=== PATIENT | male | born 1950 | race Caucasian/White ===

== ENCOUNTER 2019-02-17 06:41 | Inpatient (IN) | payer MEDICARE, OTHER ==
[~2019-02-17] VITALS: Ht 172.7 cm; Wt 75.7 kg
[~2019-02-17 06:41] MED LIST: DOXA4TAB2
[2019-02-17] MEDS ORDERED: SODIUM CHLORIDE 0.9% 1L BAG IV* STA (06:56)
[2019-02-17] MEDS ORDERED: CEFEPIME 2GM/50 ML (PMX) 50 ML IVPB STA (07:01)
[2019-02-17] MEDS ORDERED: ACETAMINOPHEN 500 MG TAB PO STA (07:07)
[2019-02-17] MEDS ORDERED: VANCOMYCIN 1 GM (PMX) 250 ML IVPB ONE (07:30)
[2019-02-17] MEDS ORDERED: SOD CHLORIDE 0.9% 1,000 ML IV SCH (08:34)
--- NOTE | 2019-02-17 08:40 | ERD ---
ER Documentation Chief Complaint Chief Complaint LOWER ABD PAIN FOR THE PAST DAY WITH HIGH FEVER. AND DYSURIA NO BACK PAIN HPI This is a 68-year-old male history of BPH and hypertension who presents to the emergency room for evaluation of painful urination, frequent urination, generalized weakness, fever, chills, and lower abdominal pain. The patient states that his symptoms have been present for the past [address] ates that he is not taking any medication to help with his pain or fever and came to the ER for evaluation. He localizes the pain to the lower portion of his abdomen and denies any radiation of the pain. The patient denies any chest pain or shortness of breath associated with this ROS All systems reviewed and are negative except as per history of present illness. Medications Home Meds Reported Medications Doxazosin Mesylate* (Cardura*) 4 Mg Tablet 02/13/14 Allergies Allergies: Coded Allergies: No Known Allergy (Unverified , 02/13/14) Physical Exam Vitals Vital Signs Date Temp Pulse Resp B/P (MAP) Pulse Ox O2 O2 Flow FiO2 Time Delivery Rate 02/17/19 101.4 100 18 128/71 97 Room Air 08:00 (90) 02/17/19 104.0 07:17 02/17/19 105.1 145 22 111/58 98 06:43 (75) Physical Exam INITIAL VITAL SIGNS: Reviewed by me GENERAL: The patient is appearing elderly male, mild distress HEENT: Dry mucous membranes, pupils equal, round, and reactive to light. EOMI. There is no scleral icterus. NECK: C-spine is soft and supple, there is no meningismus. There is no cervical lymphadenopathy. LUNGS: Clear to auscultation bilaterally. There are no rales, wheezes or rhonchi. HEART: Tachycardic no murmurs, clicks, rubs or gallops. ABDOMEN: Suprapubic tenderness to palpation, soft, non-tender, non-distended. There are bowel sounds in all four quadrants. No rebound or guarding. EXTREMITIES: There is no peripheral cyanosis or edema. No focal swelling or erythema. NEUROLOGICAL: The patient moves all four extremities with 5/5 strength. Cranial nerves II - XII are intact. Normal gait. Alert and oriented SKIN: There is no apparent rash or petechiae. HEME/LYMPHATIC: There is no evidence of excessive bruising or lymphedema. PSYCHIATRIC: The patient does not appear anxious or depressed. Result Diagram: 02/17/19 0702/17/19 07 Results 24 hrs Laboratory Tests Test 02/17/19 06:58 02/17/19 07:01 02/17/19 07:08 POC Venous Lactate 2.9 mmol/L White Blood Count 9.3 10^3/ul Red Blood Count 4.98 10^6/ul Hemoglobin 13.6 g/dl Hematocrit 40.6 % Mean Corpuscular Volume 81.5 fl Mean Corpuscular Hemoglobin 27.3 pg Mean Corpuscular 33.5 g/dl Hemoglobin Concent Red Cell Distribution Width 13.0 % Platelet Count 171 10^3/UL Mean Platelet Volume 9.6 fl Immature Granulocytes % 0.500 % Neutrophils % 80.8 % Lymphocytes % 15.4 % Monocytes % 2.5 % Eosinophils % 0.5 % Basophils % 0.3 % Nucleated Red Blood Cells % 0.0 /100WBC Immature Granulocytes # 0.050 10^3/ul Neutrophils # 7.5 10^3/ul Lymphocytes # 1.4 10^3/ul Monocytes # 0.2 10^3/ul Eosinophils # 0.1 10^3/ul Basophils # 0.0 10^3/ul Nucleated Red Blood Cells # 0.0 10^3/ul Prothrombin Time 13.5 Sec Prothrombin Time Ratio 1.1 INR International 1.02 Normalized Ratio Activated Partial Thromboplast 26.9 Sec Time Sodium Level 132 mmol/L Potassium Level 4.2 mmol/L Chloride Level 94 mmol/L Carbon Dioxide Level 25 mmol/L Anion Gap 13 Blood Urea Nitrogen 16 mg/dl Creatinine 1.24 mg/dl Est Glomerular Filtrat 58 mL/min Rate mL/min Glucose Level 196 mg/dl Calcium Level 8.7 mg/dl Total Bilirubin 1.1 mg/dl Direct Bilirubin 0.00 mg/dl Indirect Bilirubin 1.1 mg/dl Aspartate Amino 16 IU/L Transf (AST/SGOT) Alanine 27 IU/L Aminotransferase (ALT/SGPT) Alkaline Phosphatase 110 IU/L Troponin I < 0.012 ng/ml Total Protein 7.4 g/dl Albumin 4.0 g/dl Globulin 3.40 g/dl Albumin/Globulin Ratio 1.17 Urine Color YELLOW Urine Clarity SLIGHTLY CLOUDY Urine pH 6.0 Urine Specific [place] 1.008 Urine Ketones NEGATIVE mg/dL Urine Nitrite NEGATIVE mg/dL Urine Bilirubin NEGATIVE mg/dL Urine Urobilinogen NEGATIVE mg/dL Urine Leukocyte Esterase 3+ Yessi/ul Urine Microscopic RBC 5 /HPF Urine Microscopic WBC > 182 /HPF Urine Bacteria FEW /HPF Urine Hemoglobin 2+ mg/dL Urine Glucose NEGATIVE mg/dL Urine Total Protein 1+ mg/dl Current Medications Medications Dose Sig/Zuleyma Start Time Status Last (Trade) Ordered Route PRN Stop Time Admin Dose Reason Admin Sodium 2,040 ml BOLUS OVER 2 02/17/19 DC 02/17/19 Chloride HOURS STAT 06:56 07:04 (NS) IV* 02/17/19 06:57 Cefepime HCl 50 ml @ ONCE STAT 02/17/19 DC 02/17/19 100 mls/hr IVPB 07:01 07:13 02/17/19 07:30 Vancomycin 250 ml @ ONCE ONCE 02/17/19 02/17/19 HCl 125 mls/hr IVPB 07:30 07:56 02/17/19 09:29 1,000 mg ONCE STAT 02/17/19 DC 02/17/19 Acetaminophen PO 07:07 07:17 (Tylenol 02/17/19 07:08 Tab) Sodium 1,000 ml @ [id number] IV 02/17/19 Chloride 80 mls/hr 08:34 02/17/19 21:03 Ondansetron 4 mg BRIDGE ORDER 02/17/19 HCl (Zofran PRN IV 09:00 Inj) NAUSEA/VOMITI 02/18/19 08:59 NG 650 mg ER BRIDGE 02/17/19 Acetaminophen PRN PO 09:00 (Tylenol .MILD PAIN 02/18/19 08:59 Tab) 1-3 OR TEMP Procedures/MDM EKG: Rate/Rhythm: Sinus tachycardia QRS, ST, T-waves: [No changes consistent w/ acute ischemia] Impression: [No evidence of ischemia or arrhythmia] Chest X-ray 1V Interpreted by me: Soft Tissue: No acute abnormalities Bones: No acute abnormalities Mediastinum/Cardiac Silhouette/Lungs: Bibasilar atelectasis CT abdomen pelvis without: No evidence of urolithiasis, obstructive uropathy, diverticulitis or appendicitis. No intraperitoneal or retroperitoneal abscess. Enlarged prostate - correlation with PSA is suggested. Diffuse thickening wall of urinary bladder. Question chronic partial bladder outlet obstruction. Fatty liver. Multiple hepatic cysts. Vascular calcifications. This 68-year-old male presents to the ER for evaluation of lower abdominal pain, frequent urination and painful urination. On my exam the patient was tachycardic, he was warm to the touch with a fever of 105. A code sepsis was called. The patient was given appropriate fluid bolus and was started on broad- spectrum antibiotics. The patient has no leukocytosis however his urinalysis does show greater than 100 white blood cells in the urine. The patient CT the abdomen pelvis does show some inflammation around the bladder and possible bladder outlet obstruction. The patient has no difficulty with urination, urina ting without difficulty in the emergency room. I doubt that he has bladder outlet obstruction given his allergy to urinate without difficulty. Given the patient's age presenting symptoms and UTI he does meet sepsis criteria. He has maintained a mean arterial pressure greater than 65 with no need for vasopressors. The patient was given Tylenol for his fever and on reevaluation his vitals have improved. The patient will be admitted at this time to Dr. Quinn. Patient's infectious symptoms have not stabilized and the patient is at risk of rapid decompensation. The patient will be admitted for careful hydration, antibiotic therapy, and infectious source control. Severe Sepsis Assessment: Infectious Source: Acute cystitis End organ damage indicated by: [Lactate > 2.0 mmol/L Hypotension( SBP < 90 or >40 mmHG drop or MAP < 65) Acute Resp Failure (sat < 92% w/o oxygen) Diving Board Assembler > 2.0 INR > 1.5 Plt < 100 Bili > 2] Severe Sepsis Managment: Blood Cultures X 2 before broad spectrum antibiotics initiated within 3 hours of recognition. 30 ml/kg NS bolus Completed Initial Lactate: 2.9 Repeat Lactate pending] Critical Care: Excluding all billable procedures Time: 66 minutes Treatments/Evaluations: Emergent fluid management, while maintaining close respiratory support. Immediate broad spectrum antibiotic therapy. Simultaneous assessment for possible sources in order to direct therapy. Consideration for invasive and chemical support to prevent respiratory or cardiac collapse. Septic Shock Assessment (1 hour post 30 ml/kg fluid bolus): Hypotension (SBP < 90 or 40 mmHg drop, MAP < 65): [No] Lactic acid > 4.0 [No] Perfusion Reassessment for Septic Shock: Ucyb065.4, [id number], RR 18], BP128/71 Heart Exam: [Tachycardic] Lung Exam: [No Crackles] Capillary Refill: [Delayed] Peripheral Pulses: [Radially present] Skin: Good turgor Hypotensive Treatment (not required for isolated lactic acid elevation): Comfort Care: No Central LIne: No Vasopressor started: None I considered further perfusion assessment with CVP measurement, SCVO2, bedside ultrasound volume assessment, passive leg raise, trial of further fluid bolus. And preceded with further fluid bolus Accepting Care Team: Current data and ongoing care discussed. Time: 0842Time of admission Primary Provider: lenny Consulting: [XOXOXO] Outstanding Data: none Departure Diagnosis: Primary Impression: Sepsis Additional Impressions: Acute cystitis Dysuria Generalized weakness BPH (benign prostatic hyperplasia) Condition: Fair BERNA TREJO DO February 17, 2019 08:40
[2019-02-17] MEDS ORDERED: ACETAMINOPHEN 325 MG TAB PO PRN (09:00)
[2019-02-17] MEDS ORDERED: ONDANSETRON 4 MG INJ IV PRN (09:00)
[2019-02-17 10:52] VITALS: Ht 172.7 cm; Wt 75.7 kg
[2019-02-17 11:10] VITALS: BP 102/66; PULSE 86; RESP 18
[2019-02-17] MEDS ORDERED: CEFTRIAXONE 1 GM/50 ML (PMX) 50 ML IVPB SCH (11:30)
[2019-02-17] MEDS ORDERED: NACL 0.9% 3 ML SYG IV SCH (11:30)
[2019-02-17] MEDS ORDERED: OXYCODONE/ACETAMINOPHEN (5/325) TAB PO PRN (11:30)
[2019-02-17 14:00] VITALS: BP 108/57; PULSE 76; RESP 18
--- NOTE | 2019-02-17 14:30 | HP ---
Date/Time of Note Date/Time of Note DATE: 02/17/19 TIME: 14:20 Assessment/Plan VTE Prophylaxis SCD applied (from Nsg): Yes Pharmacological prophylaxis: heparin Lines/Catheters IV Catheter Type (from Nrsg): Saline Lock Urinary Cath still in place: No Assessment/Plan Hospital Course 68 male with ho BPH, HTN, DMII who presents with sepsis from UTI UTI and sepsis: - Will give ceftriaxone - Awiat cultures - IV fluids given lactic acidosis - HD stable, no signs of shock BPH: - Clealry having bothersome LUTS - On doxasin which we will continue and add finasteride - Dr hopkins consulted from urology DMII: - sliding scale insulin Hypertension: - Will hold home antihypertesnives for now Discharge likely tomorrow if stable Result Diagram: 02/17/19 0701 02/17/19 0701 Results 24hrs Laboratory Tests Test 02/17/19 06:58 02/17/19 07:01 02/17/19 07:08 02/17/19 10:13 POC Venous 2.9 *H 1.3 Lactate White Blood Count 9.3 Red Blood Count 4.98 Hemoglobin 13.6 L Hematocrit 40.6 L Mean Corpuscular 81.5 L Volume Mean Corpuscular 27.3 L Hemoglobin Mean Corpuscular 33.5 Hemoglobin Concen t Red Cell 13.0 Distribution Width Platelet Count 171 Mean Platelet 9.6 Volume Immature 0.500 H Granulocytes % Neutrophils % 80.8 H Lymphocytes % 15.4 Monocytes % 2.5 Eosinophils % 0.5 Basophils % 0.3 Nucleated Red 0.0 Blood Cells % Immature 0.050 H Granulocytes # Neutrophils # 7.5 Lymphocytes # 1.4 Monocytes # 0.2 L Eosinophils # 0.1 Basophils # 0.0 Nucleated Red 0.0 Blood Cells # Prothrombin Time 13.5 Prothrombin Time 1.1 Ratio INR International 1.02 Normalized Ratio Activated 26.9 Partial Thrombopl ast Time Sodium Level 132 L Potassium Level 4.2 Chloride Level 94 L Carbon Dioxide 25 Level Anion Gap 13 Blood Urea 16 Nitrogen Creatinine 1.24 Est Glomerular 58 L Filtrat Rate mL/min Glucose Level 196 Calcium Level 8.7 Total Bilirubin 1.1 Direct Bilirubin 0.00 Indirect 1.1 Bilirubin Aspartate Amino 16 Transf (AST/SGOT) Alanine 27 Aminotransferase (ALT/SGPT) Alkaline 110 Phosphatase Troponin I < 0.012 Total Protein 7.4 Albumin 4.0 Globulin 3.40 H Albumin/Globulin 1.17 Ratio Urine Color YELLOW Urine Clarity SLIGHTLY CLOUDY A Urine pH 6.0 Urine Specific 1.008 [place] Urine Ketones NEGATIVE Urine Nitrite NEGATIVE Urine Bilirubin NEGATIVE Urine NEGATIVE Urobilinogen Urine Leukocyte 3+ H Esterase Urine Microscopic 5 RBC Urine Microscopic > 182 H WBC Urine Bacteria FEW A Urine Hemoglobin 2+ H Urine Glucose NEGATIVE Urine Total 1+ H Protein Test 02/17/19 12:58 Lactic Acid Level 2.1 *H HPI/ROS Admit Date/Time Admit Date/Time February 17, 2019 at 08:36 Hx of Present Illness 68 yo male with BPH, hypertension, DMII who presents wtih dysuria and fever He has suffered from BPH symptosm for years. Frequency and difficulty initating stream are primary symptoms. Has had two prior UTIs over past years. Today presents wtih dysuria and fever. Foudn to have UTI in ED. Given abx. Feels better now he says. On doxasozin for years. Doesn't help much he says. Able to void, just has to strain. ROS Constitutional: no complaints, improved Eyes: no complaints ENT: no complaints Respiratory: no complaints Cardiovascular: no complaints Gastrointestinal: no complaints Genitourinary: no complaints Musculoskeletal: no complaints Skin: no complaints Neurologic: no complaints Endocrine: no complaints Lymphatic: no complaints Psychological: no complaints, nl mood/affect Immunologic: no complaints PMH/Family/Social Past Medical History BPH Hypertension DMII Medications Current Medications Ceftriaxone Sodium 50 ml @ 100 mls/hr Q24H IVPB Last administered on 02/17/19at 11:44; Admin Dose 100 MLS/HR; Start 02/17/19 at 11:30 Doxazosin Mesylate (Cardura) 4 mg DAILY@2100 PO ; Start 02/17/19 at 21:00 IV Flush (NS 3 ml) 3 ml PER PROTOCOL IV ; Start 02/17/19 at 11:30 Oxycodone/ Acetaminophen (Percocet (5/ 325)) 1 tab Q6H PRN PO .MOD PAIN 4-6; Start 02/17/19 at 11:30 Coded Allergies: No Known Allergy (Unverified , 02/13/14) Past Surgical History Past Surgical Hx: no surgical history Family History Significant Family History: no pertinent family hx, diabetes, hypertension Social History Alcohol Use: none Smoking Status: Never smoker Drug Use: none Exam/Review of Systems Vital Signs Vitals Vital Signs Date Temp Pulse Resp B/P (MAP) Pulse Ox O2 O2 Flow FiO2 Time Delivery Rate 02/17/19 98.6 86 18 102/66 96 Room Air 11:10 (78) Exam Constitutional: alert, oriented, well developed Psych: no complaints, nl mood/affect Head: normocephalic, atraumatic Eyes: nl conjunctiva, EOMI, nl lids, nl sclera, PERRL ENMT: nl external ears & nose, nl lips & teeth, nl nasal mucosa & septum Neck: supple, non-tender Respiratory: clear to auscultation, normal air movement Cardiovascular: regular rate and rhythm, nl pulses Gastrointestinal: soft, nl liver, spleen, non-tender Musculoskeletal: nl extremities to inspection Extremities: normal pulses Neurological: TELEVISION NEWS VIDEO EDITOR II-XII intact, nl mental status, nl speech, nl strength Skin: nl turgor; No rash or lesions Lymph: nl lymph nodes AISHWARYA DICKERSON MD February 17, 2019 14:30
[2019-02-17] MEDS ORDERED: GLUCAGON 1 MG INJ IM PRN (15:00)
[2019-02-17] MEDS ORDERED: DEXTROSE 50% 50 ML SYRINGE IV PRN ×2 (15:00)
[2019-02-17] MEDS ORDERED: GLUCOSE GEL 15 GRAM TUBE BUCCAL PRN (15:00)
[2019-02-17] MEDS ORDERED: GLUCOSE GEL 15 GRAM TUBE PO PRN ×2 (15:00)
[2019-02-17] MEDS: INSULIN ASPART [NOVOLOG] 3 ML PEN SC SCH ×3 (17:17→20:47)
[2019-02-17] MEDS: ACETAMINOPHEN 500 MG TAB PO PRN (18:37)
[2019-02-17 19:39] VITALS: BP 114/66; PULSE 97; RESP 18
[2019-02-17] MEDS: DOXAZOSIN 4 MG TAB PO SCH (20:48)
[2019-02-17] MEDS: INSULIN GLARGINE [LANTus] (100 UNITS/ML) SYG SC SCH (20:50)
[2019-02-17] MEDS ORDERED: IBUPROFEN 400 MG TAB PO ONE (22:00)
[2019-02-17] MEDS: MEROPENEM 1 GM/50ML(PMX) 50 ML IVPB SCH (22:33)
[2019-02-18 02:00] VITALS: BP 104/49; PULSE 77; RESP 20
[2019-02-18] MEDS: MEROPENEM 1 GM/50ML(PMX) 50 ML IVPB SCH ×3 (06:11→21:25)
[2019-02-18] MEDS: INSULIN ASPART [NOVOLOG] 3 ML PEN SC SCH ×7 (08:00→21:00)
[2019-02-18 08:12] VITALS: BP 132/74; PULSE 69; RESP 16
--- NOTE | 2019-02-18 11:48 | CONS ---
Assessment/Plan Assessment/Plan Hospital Course (Demo Recall) 68-year-old male, known to have a history of benign prostatic hypertrophy , diabetes, hypertension and high cholesterol presented to the emergency room with dysuria and fever. Blood cultures were positive for E. coli A urological consultation was requested because of the enlarged prostate and the urinary tract infection. Patient states that he usually has nocturia about 5 times and during the day he urinates every 2 hours. He denies any urgency or urgency incontinence. He did have urinary tract infections 3 times. He did undergo transrectal ultrasound and ultrasound-guided biopsy of the prostate between 2 to 3 years. And apparently that was negative. He states that his urinary stream is strong and he denies any gross hematuria. He feels he does not empty his bladder well and has postvoid dribbling he has been taking doxazosin to help him with his voiding. On the examination the abdomen is soft and the external genitalia are normal. Rectal examination revealed large and soft prostate. The blood cultures are positive for E. coli. Impression: Benign prostatic hypertrophy with recurrent urinary tract infection. Recommend: Continue the antibiotics based on the blood and urine cultures. Continue the doxazosin and check his postvoid residual was a bladder scan. Follow-up as an outpatient. Consultation Date/Type/Reason Admit Date/Time February 17, 2019 at 08:36 Date of Consultation: February 18, 2019 Type of Consult Urology Reason for Consultation Urinary tract infection, benign prostatic hypertrophy, positive blood cultures with E. coli Requesting Provider: AISHWARYA DICKERSON MD Date/Time of Note DATE: 02/18/19 TIME: 11:37 Hx of Present Illness 68-year-old male, known to have a history of benign prostatic hypertrophy , diabetes, hypertension and high cholesterol presented to the emergency room with dysuria and fever. Blood cultures were positive for E. coli A urological consultation was requested because of the enlarged prostate and the urinary tract infection. Patient states that he usually has nocturia about 5 times and during the day he urinates every 2 hours. He denies any urgency or urgency incontinence. He did have urinary tract infections 3 times. He did undergo transrectal ultrasound and ultrasound-guided biopsy of the prostate between 2 to 3 years. And apparently that was negative. He states that his urinary stream is strong and he denies any gross hematuria. He feels he does not empty his bladder well and has postvoid dribbling he has been taking doxazosin to help him with his voiding. Constitutional: chills (On admission) Eyes: other (Had right eye cataract surgery) ENT: no complaints Respiratory: no complaints Cardiovascular: no complaints; No chest pain Gastrointestinal: no complaints Genitourinary: dysuria, other (As per history of present illness) Musculoskeletal: no complaints Skin: no complaints Neurologic: no complaints Endocrine: no complaints Lymphatic: no complaints Past Medical History Medical History: diabetes, high cholesterol, hypertension Home Meds Reported Medications Doxazosin Mesylate* (Cardura*) 4 Mg Tablet 02/13/14 Medications Current Medications Doxazosin Mesylate (Cardura) 4 mg DAILY@2100 PO Last administered on 02/17/19at 20:48; Admin Dose 4 MG; Start 02/17/19 at 21:00 IV Flush (NS 3 ml) 3 ml PER PROTOCOL IV ; Start 02/17/19 at 11:30 Oxycodone/ Acetaminophen (Percocet (5/ 325)) 1 tab Q6H PRN PO .MOD PAIN 4-6; Start 02/17/19 at 11:30 Insulin Glargine (Lantus) 11 units DAILY@2000 SC Last administered on 02/17/19at 20:50; Admin Dose 11 UNITS; Start 02/17/19 at 20:00 Insulin Aspart (Novolog Insulin Pen) 4 unit WITH MEALS SC Last administered on 02/18/19at 08:58; Admin Dose 4 UNIT; Start 02/17/19 at 17:35 Insulin Aspart (Novolog Insulin Pen) NOVOLOG *MILD* ALGORITHM WITH MEALS BEDTIME SC Last administered on 02/17/19at 17:18; Admin Dose 1 UNIT; Start 02/17/19 at 18:05 Miscellaneous Information 1 ea NOTE XX ; Start 02/17/19 at 15:00 Glucose (Glutose) 15 gm Q15M PRN PO DECREASED GLUCOSE; Start 02/17/19 at 15:00 Glucose (Glutose) 22.5 gm Q15M PRN PO DECREASED GLUCOSE; Start 02/17/19 at 15:00 Dextrose (D50w Syringe) 25 ml Q15M PRN IV DECREASED GLUCOSE; Start 02/17/19 at 15:00 Dextrose (D50w Syringe) 50 ml Q15M PRN IV DECREASED GLUCOSE; Start 02/17/19 at 15:00 Glucagon (Glucagen) 1 mg Q15M PRN IM DECREASED GLUCOSE; Start 02/17/19 at 15:00 Glucose (Glutose) 15 gm Q15M PRN BUCCAL DECREASED GLUCOSE; Start 02/17/19 at 15:00 Meropenem/Sodium Chloride 50 ml @ 100 mls/hr Q8 IVPB Last administered on 02/18/19at 06:11; Admin Dose 100 MLS/HR; Start 02/17/19 at 22:00 Acetaminophen (Tylenol Tab) 500 mg Q6H PRN PO ELEVATED TEMP Last administered on 02/17/19at 18:37; Admin Dose 500 MG; Start 02/17/19 at 18:30 Allergies: Coded Allergies: No Known Allergy (Unverified , 02/13/14) Past Surgical History Past Surgical Hx: other (Right cataract surgery) Social History Alcohol Use: other (Used to drink heavily and stopped 1 year ago) Smoking Status: Never smoker Drug Use: none Exam/Review of Systems Exam Vitals Vital Signs Date Temp Pulse Resp B/P (MAP) Pulse Ox O2 O2 Flow FiO2 Time Delivery Rate 02/18/19 98.5 69 16 132/74 98 08:12 (93) 02/17/19 Room Air 11:10 Intake and Output 02/17/19 02/17/19 02/18/19 1515:00 23:00 07:00 IntakeIntake Total 290 ml 240 ml 100 ml OutputOutput Total 200 ml 350 ml BalanceBalance 290 ml 40 ml -250 ml Constitutional: alert, oriented Psych: no complaints Head: normocephalic Eyes: nl conjunctiva ENMT: nl external ears & nose Neck: supple Respiratory: normal air movement; No wheezing Cardiovascular: No jugular venous distention (JVD) Gastrointestinal: soft, non-tender Genitourinary - Male: nl penis, nl scrotum, other (Rectal exam prostate is large and soft); No CVA tenderness Musculoskeletal: nl extremities to inspection Extremities: No calf tenderness Neurological: nl mental status Skin: nl turgor Results Result Diagram: 02/18/19 0502 02/18/19 0502 Results 24hrs Laboratory Tests Test 02/17/19 12:58 02/17/19 17:15 02/17/19 20:42 02/18/19 05:02 Lactic Acid Level 2.1 *H Bedside Glucose 156 175 White Blood Count 6.9 # Red Blood Count 4.63 L Hemoglobin 12.9 L Hematocrit 38.3 L Mean Corpuscular 82.7 Volume Mean Corpuscular 27.9 L Hemoglobin Mean Corpuscular 33.7 Hemoglobin Concent Red Cell 13.1 Distribution Width Platelet Count 173 Mean Platelet Volume 9.7 Immature 0.700 H Granulocytes % Neutrophils % 79.6 H Lymphocytes % 11.8 L Monocytes % 6.1 Eosinophils % 1.2 Basophils % 0.6 Nucleated Red Blood 0.0 Cells % Immature 0.050 H Granulocytes # Neutrophils # 5.5 Lymphocytes # 0.8 Monocytes # 0.4 Eosinophils # 0.1 Basophils # 0.0 Nucleated Red Blood 0.0 Cells # Sodium Level 135 Potassium Level 4.1 Chloride Level 103 Carbon Dioxide Level 28 Anion Gap 4 #L Blood Urea Nitrogen 15 Creatinine 0.99 Est Glomerular > 60 Filtrat Rate mL/min Glucose Level 117 # Hemoglobin A1c 7.9 H Calcium Level 8.6 Total Bilirubin 0.8 Direct Bilirubin 0.00 Indirect Bilirubin 0.8 Aspartate Amino 18 Transf (AST/SGOT) Alanine 20 Aminotransferase (AL T/SGPT) Alkaline Phosphatase 68 Total Protein 6.3 # Albumin 3.4 Globulin 2.90 Albumin/Globulin 1.17 Ratio Test 02/18/19 08:06 Bedside Glucose [address] scan of the abdomen and pelvis: No evidence of urolithiasis, obstructive uropathy, diverticulitis or appendicitis. No intraperitoneal or retroperitoneal abscess. Enlarged prostate - correlation with PSA is suggested. Diffuse thickening wall of urinary bladder. Question chronic partial bladder outlet obstruction. Fatty liver. Multiple hepatic cysts. Vascular calcifications. Medications Medication Current Medications Doxazosin Mesylate (Cardura) 4 mg DAILY@2100 PO Last administered on 02/17/19at 20:48; Admin Dose 4 MG; Start 02/17/19 at 21:00 IV Flush (NS 3 ml) 3 ml PER PROTOCOL IV ; Start 02/17/19 at 11:30 Oxycodone/ Acetaminophen (Percocet (5/ 325)) 1 tab Q6H PRN PO .MOD PAIN 4-6; Start 02/17/19 at 11:30 Insulin Glargine (Lantus) 11 units DAILY@2000 SC Last administered on 02/17/19at 20:50; Admin Dose 11 UNITS; Start 02/17/19 at 20:00 Insulin Aspart (Novolog Insulin Pen) 4 unit WITH MEALS SC Last administered on 02/18/19at 08:58; Admin Dose 4 UNIT; Start 02/17/19 at 17:35 Insulin Aspart (Novolog Insulin Pen) NOVOLOG *MILD* ALGORITHM WITH MEALS BEDTIME SC Last administered on 02/17/19at 17:18; Admin Dose 1 UNIT; Start 02/17/19 at 18:05 Miscellaneous Information 1 ea NOTE XX ; Start 02/17/19 at 15:00 Glucose (Glutose) 15 gm Q15M PRN PO DECREASED GLUCOSE; Start 02/17/19 at 15:00 Glucose (Glutose) 22.5 gm Q15M PRN PO DECREASED GLUCOSE; Start 02/17/19 at 15:00 Dextrose (D50w Syringe) 25 ml Q15M PRN IV DECREASED GLUCOSE; Start 02/17/19 at 15:00 Dextrose (D50w Syringe) 50 ml Q15M PRN IV DECREASED GLUCOSE; Start 02/17/19 at 15:00 Glucagon (Glucagen) 1 mg Q15M PRN IM DECREASED GLUCOSE; Start 02/17/19 at 15:00 Glucose (Glutose) 15 gm Q15M PRN BUCCAL DECREASED GLUCOSE; Start 02/17/19 at 15:00 Meropenem/Sodium Chloride 50 ml @ 100 mls/hr Q8 IVPB Last administered on 02/18/19at 06:11; Admin Dose 100 MLS/HR; Start 02/17/19 at 22:00 Acetaminophen (Tylenol Tab) 500 mg Q6H PRN PO ELEVATED TEMP Last administered on 02/17/19at 18:37; Admin Dose 500 MG; Start 02/17/19 at 18:30 BRITNEY CAMPUZANO MD February 18, 2019 11:48
--- NOTE | 2019-02-18 11:57 | RADRPT ---
Vent Rate: 123 bpm RR Interval: 0 msec OK Interval: 172 msec QRS Duration: 90 msec QT Interval: 294 msec QTC Interval: 420 msec P-R-T [place]: 28 - 61 - 11 degrees Sinus tachycardia Otherwise normal ECG Electronically Signed By: *[facility]
--- NOTE | 2019-02-18 12:47 | PN ---
Date/Time of Note Date/Time of Note DATE: 02/18/19 TIME: 12:46 Assessment/Plan VTE Prophylaxis Risk score (from Nsg)>0 risk: 4 SCD applied (from Nsg): Yes Pharmacological prophylaxis: heparin Lines/Catheters IV Catheter Type (from Nrsg): Saline Lock Urinary Cath still in place: No Assessment/Plan Hospital Course 68 male with ho BPH, HTN, DMII who presents with sepsis from UTI UTI and sepsis with GNR bactremia: - Continue merrem for now, await culture and speciation - HD stable, no signs of shock BPH: - Clealry having bothersome LUTS - On doxasin which we will continue and add finasteride - Dr hopkins consulted from urology DMII: - sliding scale insulin Hypertension: - Will hold home antihypertesnives for now Discharge home when cultures are resulted on PO abx Result Diagram: 02/18/19 0502 02/18/19 0502 Results 24hrs Laboratory Tests Test 02/17/19 12:58 02/17/19 17:15 02/17/19 20:42 02/18/19 05:02 Lactic Acid Level 2.1 *H Bedside Glucose 156 175 White Blood Count 6.9 # Red Blood Count 4.63 L Hemoglobin 12.9 L Hematocrit 38.3 L Mean Corpuscular 82.7 Volume Mean Corpuscular 27.9 L Hemoglobin Mean Corpuscular 33.7 Hemoglobin Concent Red Cell 13.1 Distribution Width Platelet Count 173 Mean Platelet Volume 9.7 Immature 0.700 H Granulocytes % Neutrophils % 79.6 H Lymphocytes % 11.8 L Monocytes % 6.1 Eosinophils % 1.2 Basophils % 0.6 Nucleated Red Blood 0.0 Cells % Immature 0.050 H Granulocytes # Neutrophils # 5.5 Lymphocytes # 0.8 Monocytes # 0.4 Eosinophils # 0.1 Basophils # 0.0 Nucleated Red Blood 0.0 Cells # Sodium Level 135 Potassium Level 4.1 Chloride Level 103 Carbon Dioxide Level 28 Anion Gap 4 #L Blood Urea Nitrogen 15 Creatinine 0.99 Est Glomerular > 60 Filtrat Rate mL/min Glucose Level 117 # Hemoglobin A1c 7.9 H Calcium Level 8.6 Total Bilirubin 0.8 Direct Bilirubin 0.00 Indirect Bilirubin 0.8 Aspartate Amino 18 Transf (AST/SGOT) Alanine 20 Aminotransferase (AL T/SGPT) Alkaline Phosphatase 68 Total Protein 6.3 # Albumin 3.4 Globulin 2.90 Albumin/Globulin 1.17 Ratio Test 02/18/19 08:06 02/18/19 12:36 Bedside Glucose 112 128 Subjective 24 Hr Interval Summary Free Text/Dictation He continued to have fevers and has GNRs in the blood so I broaded abx to merrem He feels well today Exam/Review of Systems Exam Vitals Vital Signs Date Temp Pulse Resp B/P (MAP) Pulse Ox O2 O2 Flow FiO2 Time Delivery Rate 02/18/19 98.5 69 16 132/74 98 08:12 (93) 02/17/19 Room Air 11:10 Intake and Output 02/17/19 02/17/19 02/18/19 1515:00 23:00 07:00 IntakeIntake Total 290 ml 240 ml 100 ml OutputOutput Total 200 ml 350 ml BalanceBalance 290 ml 40 ml -250 ml Results Results 24hrs Laboratory Tests Test 02/17/19 12:58 02/17/19 17:15 02/17/19 20:42 02/18/19 05:02 Lactic Acid Level 2.1 *H Bedside Glucose 156 175 White Blood Count 6.9 # Red Blood Count 4.63 L Hemoglobin 12.9 L Hematocrit 38.3 L Mean Corpuscular 82.7 Volume Mean Corpuscular 27.9 L Hemoglobin Mean Corpuscular 33.7 Hemoglobin Concent Red Cell 13.1 Distribution Width Platelet Count 173 Mean Platelet Volume 9.7 Immature 0.700 H Granulocytes % Neutrophils % 79.6 H Lymphocytes % 11.8 L Monocytes % 6.1 Eosinophils % 1.2 Basophils % 0.6 Nucleated Red Blood 0.0 Cells % Immature 0.050 H Granulocytes # Neutrophils # 5.5 Lymphocytes # 0.8 Monocytes # 0.4 Eosinophils # 0.1 Basophils # 0.0 Nucleated Red Blood 0.0 Cells # Sodium Level 135 Potassium Level 4.1 Chloride Level 103 Carbon Dioxide Level 28 Anion Gap 4 #L Blood Urea Nitrogen 15 Creatinine 0.99 Est Glomerular > 60 Filtrat Rate mL/min Glucose Level 117 # Hemoglobin A1c 7.9 H Calcium Level 8.6 Total Bilirubin 0.8 Direct Bilirubin 0.00 Indirect Bilirubin 0.8 Aspartate Amino 18 Transf (AST/SGOT) Alanine 20 Aminotransferase (AL T/SGPT) Alkaline Phosphatase 68 Total Protein 6.3 # Albumin 3.4 Globulin 2.90 Albumin/Globulin 1.17 Ratio Test 02/18/19 08:06 02/18/19 12:36 Bedside Glucose 112 128 Medications Medication Current Medications Doxazosin Mesylate (Cardura) 4 mg DAILY@2100 PO Last administered on 02/17/19at 20:48; Admin Dose 4 MG; Start 02/17/19 at 21:00 IV Flush (NS 3 ml) 3 ml PER PROTOCOL IV ; Start 02/17/19 at 11:30 Oxycodone/ Acetaminophen (Percocet (5/ 325)) 1 tab Q6H PRN PO .MOD PAIN 4-6; Start 02/17/19 at 11:30 Insulin Glargine (Lantus) 11 units DAILY@2000 SC Last administered on 02/17/19at 20:50; Admin Dose 11 UNITS; Start 02/17/19 at 20:00 Insulin Aspart (Novolog Insulin Pen) 4 unit WITH MEALS SC Last administered on 02/18/19at 08:58; Admin Dose 4 UNIT; Start 02/17/19 at 17:35 Insulin Aspart (Novolog Insulin Pen) NOVOLOG *MILD* ALGORITHM WITH MEALS BEDTIME SC Last administered on 02/17/19at 17:18; Admin Dose 1 UNIT; Start 02/17/19 at 18:05 Miscellaneous Information 1 ea NOTE XX ; Start 02/17/19 at 15:00 Glucose (Glutose) 15 gm Q15M PRN PO DECREASED GLUCOSE; Start 02/17/19 at 15:00 Glucose (Glutose) 22.5 gm Q15M PRN PO DECREASED GLUCOSE; Start 02/17/19 at 15:00 Dextrose (D50w Syringe) 25 ml Q15M PRN IV DECREASED GLUCOSE; Start 02/17/19 at 15:00 Dextrose (D50w Syringe) 50 ml Q15M PRN IV DECREASED GLUCOSE; Start 02/17/19 at 15:00 Glucagon (Glucagen) 1 mg Q15M PRN IM DECREASED GLUCOSE; Start 02/17/19 at 15:00 Glucose (Glutose) 15 gm Q15M PRN BUCCAL DECREASED GLUCOSE; Start 02/17/19 at 15:00 Meropenem/Sodium Chloride 50 ml @ 100 mls/hr Q8 IVPB Last administered on 02/18/19at 06:11; Admin Dose 100 MLS/HR; Start 5/18/19 at 22:00 Acetaminophen (Tylenol Tab) 500 mg Q6H PRN PO ELEVATED TEMP Last administered on 02/17/19at 18:37; Admin Dose 500 MG; Start 02/17/19 at 18:30 AISHWARYA DICKERSON MD February 18, 2019 12:47
[2019-02-18 13:57] VITALS: BP 136/80; PULSE 75; RESP 16
[2019-02-18] MEDS: FINASTERIDE 5 MG TAB PO SCH (14:02)
[2019-02-18] MEDS: ACETAMINOPHEN 500 MG TAB PO PRN (19:40)
[2019-02-18 20:16] VITALS: BP 138/73; PULSE 84; RESP 18
[2019-02-18] MEDS: INSULIN GLARGINE [LANTus] (100 UNITS/ML) SYG SC SCH (21:19)
[2019-02-18] MEDS: DOXAZOSIN 4 MG TAB PO SCH (21:24)
[2019-02-19 02:00] VITALS: BP 152/80; PULSE 66; RESP 18
[2019-02-19] MEDS: MEROPENEM 1 GM/50ML(PMX) 50 ML IVPB SCH ×3 (06:41→22:27)
[2019-02-19 06:49] VITALS: BP 159/80; PULSE 69
[2019-02-19] MEDS: INSULIN ASPART [NOVOLOG] 3 ML PEN SC SCH ×7 (07:48→20:42)
[2019-02-19] MEDS: FINASTERIDE 5 MG TAB PO SCH (08:18)
--- NOTE | 2019-02-19 08:22 | CONS ---
Assessment/Plan Assessment/Plan Hospital Course (Demo Recall) 68-year-old male, known to have a history of benign prostatic hypertrophy , diabetes, hypertension and high cholesterol presented to the emergency room with dysuria and fever. Blood cultures were positive for E. coli A urological consultation was requested because of the enlarged prostate and the urinary tract infection. Patient states that he usually has nocturia about 5 times and during the day he urinates every 2 hours. He denies any urgency or urgency incontinence. He did have urinary tract infections 3 times. He did undergo transrectal ultrasound and ultrasound-guided biopsy of the prostate between 2 to 3 years. And apparently that was negative. He states that his urinary stream is strong and he denies any gross hematuria. He feels he does not empty his bladder well and has postvoid dribbling he has been taking doxazosin to help him with his voiding. On the examination the abdomen is soft and the external genitalia are normal. Rectal examination revealed large and soft prostate. The blood cultures and urine culture are positive for E. coli. The postvoid residual is high 167 mL Impression: Benign prostatic hypertrophy with recurrent urinary tract infection. Recommend: Continue the meropenem. Continue the doxazosin He will need follow-up as an outpatient and if he continues to have a high postvoid residual he may need surgery on his prostate. Consultation Date/Type/Reason Admit Date/Time February 17, 2019 at 08:36 Initial Consult Date 02/18/19 Type of Consult Urology Reason for Consultation Urinary tract infection and positive blood cultures with E. coli. Enlarged prostate. Requesting Provider: AISHWARYA DICKERSON MD Date/Time of Note DATE: 02/19/19 TIME: 08:18 24 HR Interval Summary Free Text/Dictation Patient complains of dysuria. The urine is clear. Exam/Review of Systems Exam Vitals Vital Signs Date Temp Pulse Resp B/P (MAP) Pulse Ox O2 O2 Flow FiO2 Time Delivery Rate 02/19/19 69 159/80 06:49 (106) 02/19/19 98.3 18 97 02:00 02/17/19 Room Air 11:10 Intake and Output 02/18/19 02/18/19 02/19/19 1515:00 23:00 07:00 IntakeIntake Total 550 ml 850 ml 500 ml BalanceBalance 550 ml 850 ml 500 ml Exam Patient is alert and awake and comfortable, the abdomen is soft. The bladder is not distended. Patient has voided 200 mL and his postvoid residual was 167 mL the urine culture did show 100,000 E. coli. Blood cultures showing the same organism and it is resistant to Cipro and Bactrim. Sensitive to cefotaxime. The patient is on meropenem. Results Result Diagram: 02/19/19 0429 02/19/19 0429 Results 24hrs Laboratory Tests Test 02/18/19 12:36 02/18/19 17:29 02/18/19 21:15 02/19/19 04:29 Bedside Glucose 128 128 162 White Blood Count 4.5 #L Red Blood Count 4.98 Hemoglobin 13.7 L Hematocrit 40.9 L Mean Corpuscular 82.1 Volume Mean Corpuscular 27.5 L Hemoglobin Mean Corpuscular 33.5 Hemoglobin Concent Red Cell 13.1 Distribution Width Platelet Count 201 Mean Platelet Volume 9.8 Immature 0.700 H Granulocytes % Neutrophils % 60.1 Lymphocytes % 25.1 Monocytes % 11.0 Eosinophils % 2.7 Basophils % 0.4 Nucleated Red Blood 0.0 Cells % Immature 0.030 Granulocytes # Neutrophils # 2.7 Lymphocytes # 1.1 Monocytes # 0.5 Eosinophils # 0.1 Basophils # 0.0 Nucleated Red Blood 0.0 Cells # Sodium Level 137 Potassium Level 3.8 Chloride Level 102 Carbon Dioxide Level 27 Anion Gap 8 Blood Urea Nitrogen 13 Creatinine 0.87 Est Glomerular > 60 Filtrat Rate mL/min Glucose Level 129 Calcium Level 8.9 Test 02/19/19 07:45 Bedside Glucose 142 Medications Medication Current Medications Doxazosin Mesylate (Cardura) 4 mg DAILY@2100 PO Last administered on 02/18/19at 21:24; Admin Dose 4 MG; Start 02/17/19 at 21:00 IV Flush (NS 3 ml) 3 ml PER PROTOCOL IV ; Start 02/17/19 at 11:30 Oxycodone/ Acetaminophen (Percocet (5/ 325)) 1 tab Q6H PRN PO .MOD PAIN 4-6; Start 02/17/19 at 11:30 Insulin Glargine (Lantus) 11 units DAILY@2000 SC Last administered on 02/18/19at 21:19; Admin Dose 11 UNITS; Start 02/17/19 at 20:00 Insulin Aspart (Novolog Insulin Pen) 4 unit WITH MEALS SC Last administered on 02/19/19 07:48; Admin Dose 4 UNIT; Start 02/17/19 at 17:35 Insulin Aspart (Novolog Insulin Pen) NOVOLOG *MILD* ALGORITHM WITH MEALS BEDTIME SC Last administered on 02/19/19 07:50; Admin Dose 1 UNIT; Start 02/17/19 at 18:05 Miscellaneous Information 1 ea NOTE XX ; Start 02/17/19 at 15:00 Glucose (Glutose) 15 gm Q15M PRN PO DECREASED GLUCOSE; Start 02/17/19 at 15:00 Glucose (Glutose) 22.5 gm Q15M PRN PO DECREASED GLUCOSE; Start 02/17/19 at 15:00 Dextrose (D50w Syringe) 25 ml Q15M PRN IV DECREASED GLUCOSE; Start 02/17/19 at 15:00 Dextrose (D50w Syringe) 50 ml Q15M PRN IV DECREASED GLUCOSE; Start 02/17/19 at 15:00 Glucagon (Glucagen) 1 mg Q15M PRN IM DECREASED GLUCOSE; Start 02/17/19 at 15:00 Glucose (Glutose) 15 gm Q15M PRN BUCCAL DECREASED GLUCOSE; Start 02/17/19 at 15:00 Meropenem/Sodium Chloride 50 ml @ 100 mls/hr Q8 IVPB Last administered on 02/19/19 06:41; Admin Dose 100 MLS/HR; Start 02/17/19 at 22:00 Acetaminophen (Tylenol Tab) 500 mg Q6H PRN PO ELEVATED TEMP Last administered on 02/18/19at 19:40; Admin Dose 500 MG; Start 02/17/19 at 18:30 Finasteride (Proscar) 5 mg DAILY PO Last administered on 02/18/19 14:02; Admin Dose 5 MG; Start 02/18/19 at 13:00 BRITNEY CAMPUZANO MD February 19, 2019 08:22
[2019-02-19 08:37] VITALS: BP 169/83; PULSE 70; RESP 18
--- NOTE | 2019-02-19 10:52 | PN ---
Date/Time of Note Date/Time of Note DATE: 02/19/19 TIME: 10:46 Assessment/Plan VTE Prophylaxis Risk score (from Ns)>0 risk: 3 SCD applied (from Ns): Yes Pharmacological prophylaxis: NA/contraindicated Pharm contraindication: low risk/ambulating Lines/Catheters [facility] Saline Lock Urinary Cath still in place: No Assessment/Plan Hospital Course SUBJECTIVE: She had fevers last night. Currently afebrile. Denies dysuria/hematuria/urinary incontinence. OBJECTIVE: Vital signs-see below PHYSICAL EXAM: Constitutional: Adequately built,not in acute distress. HEENT: Head atraumatic and normocephalic. Eyes: Extraocular muscles intact. Ani cteric sclerae. Pupils equal bilaterally, reactive to light. NECK: Supple without lymph node. CHEST: Clear and good breath sounds equally. No wheezing. No rhonchi. HEART: S1, S2. Regular rate and rhythm. ABDOMEN: Soft/non tender with no rebound tenderness. Bowel sounds were present. EXTREMITIES: No cyanosis, clubbing or edema. NEUROLOGIC: Alert and oriented x3. No focal deficit. No sensory deficit. PSYCHOSOCIAL: No signs of depression. INTEGUMENTARY: No open wounds. ASSESSMENT AND PLAN:68 male with ho BPH, HTN, DMII who presents with sepsis from UTI Sepsis with E. coli bacteremia Source: Urinary tract infection -On appropriate antimicrobials. At this time, we also recommend repeating blood cultures and de-escalation of antimicrobial accordingly. E. coli urinary tract infection -Treatment as above. Will obtain a UA for clearance BPH: - On doxasin / finasteride -Appreciate recommendations from urology DMII: - sliding scale insulin -Metformin on discharge Hypertension: -Needs more control. Add lisinopril -Continue Cardura DVT prophylaxis: SCDs/ambulation Disposition: Follow-up repeat blood cultures. Continue IV antimicrobial for another 24 hours. Initial blood cultures sensitive to 3rd gen.cephalosporin. If no further fevers over 24 hours, DC planning on oral antibiotic, preferably Cefdinir x10 more days Patient was seen in collaboration w/ Result Diagram: 02/19/199 02/19/19 0429 Results 24hrs Laboratory Tests Test 02/18/19 12:36 02/18/19 17:29 02/18/19 21:15 02/19/19 04:29 Bedside Glucose 128 128 162 White Blood Count 4.5 #L Red Blood Count 4.98 Hemoglobin 13.7 L Hematocrit 40.9 L Mean Corpuscular 82.1 Volume Mean Corpuscular 27.5 L Hemoglobin Mean Corpuscular 33.5 Hemoglobin Concent Red Cell 13.1 Distribution Width Platelet Count 201 Mean Platelet Volume 9.8 Immature 0.700 H Granulocytes % Neutrophils % 60.1 Lymphocytes % 25.1 Monocytes % 11.0 Eosinophils % 2.7 Basophils % 0.4 Nucleated Red Blood 0.0 Cells % Immature 0.030 Granulocytes # Neutrophils # 2.7 Lymphocytes # 1.1 Monocytes # 0.5 Eosinophils # 0.1 Basophils # 0.0 Nucleated Red Blood 0.0 Cells # Sodium Level 137 Potassium Level 3.8 Chloride Level 102 Carbon Dioxide Level 27 Anion Gap 8 Blood Urea Nitrogen 13 Creatinine 0.87 Est Glomerular > 60 Filtrat Rate mL/min Glucose Level 129 Calcium Level 8.9 Test 02/19/19 07:45 Bedside Glucose 142 Exam/Review of Systems Exam Vitals Vital Signs Date Temp Pulse Resp B/P (MAP) Pulse Ox O2 O2 Flow FiO2 Time Delivery Rate 02/19/19 98.9 70 18 169/83 98 08:37 (111) 02/17/19 Room Air 11:10 Intake and Output 02/18/19 02/18/19 02/19/19 1515:00 23:00 07:00 IntakeIntake Total 550 ml 850 ml 500 ml BalanceBalance 550 ml 850 ml 500 ml Results Results 24hrs Laboratory Tests Test 02/18/19 12:36 02/18/19 17:29 02/18/19 21:15 02/19/19 04:29 Bedside Glucose 128 128 162 White Blood Count 4.5 #L Red Blood Count 4.98 Hemoglobin 13.7 L Hematocrit 40.9 L Mean Corpuscular 82.1 Volume Mean Corpuscular 27.5 L Hemoglobin Mean Corpuscular 33.5 Hemoglobin Concent Red Cell 13.1 Distribution Width Platelet Count 201 Mean Platelet Volume 9.8 Immature 0.700 H Granulocytes % Neutrophils % 60.1 Lymphocytes % 25.1 Monocytes % 11.0 Eosinophils % 2.7 Basophils % 0.4 Nucleated Red Blood 0.0 Cells % Immature 0.030 Granulocytes # Neutrophils # 2.7 Lymphocytes # 1.1 Monocytes # 0.5 Eosinophils # 0.1 Basophils # 0.0 Nucleated Red Blood 0.0 Cells # Sodium Level 137 Potassium Level 3.8 Chloride Level 102 Carbon Dioxide Level 27 Anion Gap 8 Blood Urea Nitrogen 13 Creatinine 0.87 Est Glomerular > 60 Filtrat Rate mL/min Glucose Level 129 Calcium Level 8.9 Test 02/19/19 07:45 Bedside Glucose 142 Medications Medication Current Medications Doxazosin Mesylate (Cardura) 4 mg DAILY@2100 PO Last administered on 02/18/19at 21:24; Admin Dose 4 MG; Start 02/17/19 at 21:00 IV Flush (NS 3 ml) 3 ml PER PROTOCOL IV ; Start 02/17/19 at 11:30 Oxycodone/ Acetaminophen (Percocet (5/ 325)) 1 tab Q6H PRN PO .MOD PAIN 4-6; Start 02/17/19 at 11:30 Insulin Glargine (Lantus) 11 units DAILY@2000 SC Last administered on 02/18/19at 21:19; Admin Dose 11 UNITS; Start 02/17/19 at 20:00 Insulin Aspart (Novolog Insulin Pen) 4 unit WITH MEALS SC Last administered on 02/19/19at 07:48; Admin Dose 4 UNIT; Start 02/17/19 at 17:35 Insulin Aspart (Novolog Insulin Pen) NOVOLOG *MILD* ALGORITHM WITH MEALS BEDTIME SC Last administered on 02/19/19at 07:50; Admin Dose 1 UNIT; Start at 18:05 Miscellaneous Information 1 ea NOTE XX ; Start 02/17/19 at 15:00 Glucose (Glutose) 15 gm Q15M PRN PO DECREASED GLUCOSE; Start 02/17/19 at 15:00 Glucose (Glutose) 22.5 gm Q15M PRN PO DECREASED GLUCOSE; Start 02/17/19 at 15:00 Dextrose (D50w Syringe) 25 ml Q15M PRN IV DECREASED GLUCOSE; Start 02/17/19 at 15:00 Dextrose (D50w Syringe) 50 ml Q15M PRN IV DECREASED GLUCOSE; Start 02/17/19 at 15:00 Glucagon (Glucagen) 1 mg Q15M PRN IM DECREASED GLUCOSE; Start 02/17/19 at 15:00 Glucose (Glutose) 15 gm Q15M PRN BUCCAL DECREASED GLUCOSE; Start 02/17/19 at 15:00 Meropenem/Sodium Chloride 50 ml @ 100 mls/hr Q8 IVPB Last administered on 02/19/19 06:41; Admin Dose 100 MLS/HR; Start 02/17/19 at 22:00 Acetaminophen (Tylenol Tab) 500 mg Q6H PRN PO ELEVATED TEMP Last administered on 02/18/19at 19:40; Admin Dose 500 MG; Start 02/17/19 at 18:30 Finasteride (Proscar) 5 mg DAILY PO Last administered on 02/19/19at 08:18; Admin Dose 5 MG; Start 02/18/19 at 13:00 Lisinopril (Zestril) 5 mg DAILY PO ; Start 02/19/19 at 10:00 EVETTE CLARK NP February 19, 2019 10:52
[2019-02-19] MEDS: LISINOPRIL 5 MG TAB PO SCH (11:14)
[2019-02-19 16:49] VITALS: BP 149/84; PULSE 68; RESP 18
[2019-02-19 20:00] VITALS: BP 155/85; PULSE 61; RESP 18
[2019-02-19] MEDS: DOXAZOSIN 4 MG TAB PO SCH (20:43)
[2019-02-19] MEDS: INSULIN GLARGINE [LANTus] (100 UNITS/ML) SYG SC SCH (20:44)
[2019-02-20 01:49] VITALS: BP 140/85; PULSE 72; RESP 20
[2019-02-20] MEDS: MEROPENEM 1 GM/50ML(PMX) 50 ML IVPB SCH ×2 (05:27→13:48)
[2019-02-20 08:00] VITALS: BP 129/70; PULSE 66; RESP 18
[2019-02-20] MEDS: INSULIN ASPART [NOVOLOG] 3 ML PEN SC SCH ×4 (08:00→12:34)
[2019-02-20] MEDS: LISINOPRIL 5 MG TAB PO SCH (09:09)
[2019-02-20] MEDS: FINASTERIDE 5 MG TAB PO SCH (09:09)
--- NOTE | 2019-02-20 11:21 | PDOCDIS ---
Discharge Instructions CONDITION [id number] Patient Condition: [id number] Stable HOME CARE INSTRUCTIONS: [id number] Your diet recommendation is: Cianp5m carbohydrate-controlled diet FOLLOW UP/APPOINTMENTS Follow-up Plan Follow-up with primary care physician in 1 week. Follow Up with urologist after antibiotics are completed, and if he continues to have a high postvoid residual he may need surgery on his prostate. EVETTE CLARK NP February 20, 2019 11:21
[2019-02-20] MEDS ORDERED: CEFP200T18 PO (11:28)
[2019-02-20] MEDS ORDERED: FINA5TAB4 PO (11:28)
[2019-02-20] MEDS ORDERED: LISI-313 PO (11:28)
[2019-02-20] MEDS ORDERED: METF-849 PO (11:28)
[2019-02-20 14:00] VITALS: BP 125/77; PULSE 61; RESP 18
--- NOTE | 2019-02-20 14:02 | DS ---
Date/Time of Note Date/Time of Note DATE: 02/20/19 TIME: 14:00 Discharge Summary Admission/Discharge Info Admit Date/Time February 17, 2019 at 08:36 Discharge Date/Time Discharge Diagnosis Sepsis with E. coli bacteremia. Resolved E. coli urinary tract infection BPH: DMII: Hypertension: Patient Condition: Stable Consults ,urology Procedures 02/17/2019: CT abdomen and pelvis: IMPRESSION: No evidence of urolithiasis, obstructive uropathy, diverticulitis or appendicitis. No intraperitoneal or retroperitoneal abscess. Enlarged prostate - correlation with PSA is suggested. Diffuse thickening wall of urinary bladder. Question chronic partial bladder outlet obstruction. Fatty liver. Multiple hepatic cysts. Vascular calcifications. Hospital Course 68 male with ho BPH, HTN, DMII who presents with sepsis from UTI Patient was noted with E. coli bacteremia secondary to E. coli urinary tract infection. He was treated on IV meropenem. Patient also had BPH with some nocturia and frequency urination in the daytime. He also had post void dribbling. He was seen by urologist who recommended treatment of urinary tract infection with outpatient follow-up for possible prostate surgery if he continues to have high postvoid residual. Patient's sepsis resolved. He did not have any fevers or leukocytosis any further. Hospitalization was also noted for hypertension requiring antihypertensives and new onset diabetes. A repeat urine analysis was clear with no further growth and repeated blood culture after 24 hours. At this time, since patient received 4 days on IV meropenem, he can be transitioned to oral antibiotic which is sensitive to third generation cephalosporin. As such, I had given a prescription for 10 days Vantin 200 mg twice a day. Approximately 60 m spent on coordinating the discharge on this patient. Patient is seen in collaboration with Dr. Perez. Home Meds Active Scripts Cefpodoxime Proxetil* (Cefpodoxime Proxetil*) 200 Mg Tablet, 200 MG PO Q12 for 10 Days, #20 TAB Prov:CLARK,EVETTE V. PRINCIPAL SECRETARY 02/20/19 Metformin* (Glucophage*) 500 Mg Tab, 500 MG PO WITH BREAKFAST, #30 TAB Prov:CLARK,EVETTE V. PRINCIPAL SECRETARY 02/20/19 Finasteride* (Finasteride*) 5 Mg Tablet, 5 MG PO DAILY, #30 TAB Prov:CLARK,EVETTE V. PRINCIPAL SECRETARY 02/20/19 Lisinopril* (Lisinopril*) 5 Mg Tablet, 5 MG PO DAILY, #30 TAB Prov:EVETTE CLARK V. PRINCIPAL SECRETARY 02/20/19 Reported Medications Doxazosin Mesylate* (Cardura*) 4 Mg Tablet 02/13/14 Follow-up Plan Follow-up with primary care physician in 1 week. Follow Up with urologist after antibiotics are completed, and if he continues to have a high postvoid residual he may need surgery on his prostate. Primary Care Provider Eduardo Henderson Pending Labs Laboratory Tests Test 02/19/19 17:15 02/19/19 20:40 02/20/19 05:43 02/20/19 07:59 Bedside 159 165 120 Glucose mg/dL (70-220) mg/dL (70-220) mg/dL (70-220) White Blood 4.8 Count 10^3/ul (4.8-1 0.8) Red Blood 4.90 Count 10^6/ul (4.70- 6.10) Hemoglobin 13.4 g/dl (14.0-18. 0) Hematocrit 39.7 % (42.0-52.0) Mean 81.0 Corpuscular fl (82.0-101.0 Volume ) Mean 27.3 Corpuscular pg (29.0-33.0) Hemoglobin Mean 33.8 Corpuscular g/dl (32.0-37. Hemoglobin Conc 0) ent Red Cell 13.0 Distribution % (11.5-14.5) Width Platelet Count 220 10^3/UL (140-4 15) Mean Platelet 10.1 Volume fl (7.4-10.4) Immature 1.000 Granulocytes % % (0.001-0.429 ) Neutrophils % 52.6 % (39.0-77.0) Lymphocytes % 30.3 % (15.0-51.0) Monocytes % 12.4 % (0.0-11.0) Eosinophils % 3.1 % (0.0-7.0) Basophils % 0.6 % (0.0-2.0) Nucleated Red 0.0 Blood Cells % /100WBC (0.0-0 .0) Immature 0.050 Granulocytes # 10^3/ul (0.0-0 .031) Neutrophils # 2.5 10^3/ul (1.6-7 .5) Lymphocytes # 1.5 10^3/ul (0.8-2 .9) Monocytes # 0.6 10^3/ul (0.3-0 .9) Eosinophils # 0.2 10^3/ul (0.0-0 .5) Basophils # 0.0 10^3/ul (0.0-0 .1) Nucleated Red 0.0 Blood Cells # 10^3/ul (0.0-0 .0) Sodium Level 137 mmol/L (135-14 4) Potassium 3.9 Level mmol/L (3.5-5. 1) Chloride Level 105 mmol/L (97-110 ) Carbon Dioxide 24 Level mmol/L (21-31) Anion Gap 8 (5-13) Blood Urea 13 Nitrogen mg/dl (7-20) Creatinine 0.85 mg/dl (0.61-1. 24) Est Glomerular > 60 Filtrat mL/min (>60) Rate mL/min Glucose Level 125 mg/dl (70-220) Calcium Level 9.0 mg/dl (8.4-10. 2) Triglycerides 133 Level mg/dl (0-149) Cholesterol 158 Level mg/dl (100-200 ) LDL 102 mg/dl Cholesterol, Calculated HDL 29 Cholesterol mg/dl (31-75) Cholesterol/HDL 5.4 RATIO Ratio Test 02/20/19 12:26 Bedside 125 Glucose mg/dL (70-220) EVTETE CLARK NP February 20, 2019 14:02
== END 2019-02-20 17:20 | disposition home or self-care (01) | DRG 872 ==
LOC: E/R 06:41 → PP2 08:36
PROVIDERS: ADMIT Internal Medicine; ATTEND Internal Medicine
DX: A41.51 Sepsis due to Escherichia coli [E. coli] (principal); N39.0 Urinary tract infection, site not specified; N40.1 Benign prostatic hyperplasia with lower urinary tract symptoms; I10 Essential (primary) hypertension; E11.9 Type 2 diabetes mellitus without complications; E78.00 Pure hypercholesterolemia, unspecified
CPT/HCPCS: 36415; 71045; 74176; 80048; 80053; 80061; 81001; 82962; 83036; 83605; 84484; 85025; 85610; 85730; 87086; 93005; 96374; 96375; J0692; J0696; J1815; J2185; J3370; J7030